=== PATIENT | female | born 1975 | race African-American/Black ===

== ENCOUNTER 2017-04-01 20:09 | Emergency (ER) | payer OTHER ==
--- NOTE | 2017-04-01 22:30 | DIAGNOSTIC IMAGING REPORT ---
PROCEDURE: US COMPLETE PELVIC W/TRANSVAG INDICATION: PAIN TECHNIQUE: Transabdominal and endovaginal moore scale and color Doppler sonographic images of the female pelvis were obtained. COMPARISON: CT abdomen/pelvis 03/30/2015. FINDINGS: TRANSABDOMINAL SCANS: Normal kidneys. TRANSVAGINAL SCANS: Retroverted uterus measures 6.4 x 6.4 x 5 cm. Endometrium measures 1.3 cm. Left ovary measures 5.8 x 3.4 x 3.7 cm with a 3.1 cm cyst with internal echoes and additional 1.3 cm simple cyst. There is vascular flow to the right ovary. Right ovary is surgically absent. No adnexal mass or free fluid the cul-de-sac. IMPRESSION: 1. 3.1 cm left ovarian hemorrhagic cyst and additional 1.3 cm simple cyst 2. Right oophorectomy 3. Retroverted uterus
--- NOTE | 2017-04-01 22:36 | ED CLINICAL REPORT ---
Clinical Report - Physicians/Mid Levels [facility] [address] [place] [address] 04/01/2017 20:12 Patient: VERA EMMANUEL Time Seen: 20:16 Apr 01 2017. Arrived- By private vehicle. Historian- patient and significant other. HISTORY OF PRESENT ILLNESS Chief Complaint: PELVIC PAIN. This started just prior to arrival and still present. No irregular periods. (PT Undergoing Pelvic Pain and Has Been Having Urgency Frequency and an Associated Left Ovarian Cyst over the Last 4 Weeks. Patient Initially Started with Cystitis, Was Placed on Bactrim around 03 March, in 5 Days Later Was Switched Due To Her Reaction, to Cipro, and Was Placed on Cipro for about 14-16 Days, Patient Completed the Cipro, and Was Seen in the Emergency Room, She Was Continuing to Have Left Side Pain, Radiating to Her Flank, and Was Found to have two Large Ovarian Cyst. Previously Patient with Right Ovarian Excision Surgery (oophrectomy) Due To Large Cyst at the Age of 15 or 16.). REVIEW OF SYSTEMS No vomiting, diarrhea, cough or enlarged lymph nodes. All systems otherwise negative, except as recorded above. PAST HISTORY Problems: Scabies. Diverticulitis. Sprain. Lifestyle / Substance Problems. UTI - Urinary Tract Infection. Pelvic Inflammatory Disease. LNMP - Last Normal Menstrual Period. Surgeries: No history of hysterectomy. Additional Surgeries: Appendectomy. Cholecystectomy. Laparoscopy. Oophorectomy. Tonsillectomy. Medications: Diclofenac Oral (Capsule 35 mg) 1 capsule, tid. Robaxin Oral 500 mg, as needed. Allergies: Codeine. SOCIAL HISTORY Current every day light tobacco smoker. History of drug use: marijuana. Not an IV drug user. No alcohol use. ADDITIONAL NOTES The nursing notes have been reviewed. PHYSICAL EXAM Vital Signs: 04/01/2017 20:21 BP: 115/74. HR: 98. RR: 16. O2 saturation: 97%. Temp: 98.4 F. Pain level now: 9/10. Appearance: No acute distress. Appears to be in pain. Patient in moderate distress. ENT: Pharynx normal. No hearing deficit. Neck: Neck supple. CVS: Heart sounds normal. Respiratory: No respiratory distress. Breath sounds normal. Abdomen: No mass. Back: Normal external inspection. No CVA tenderness. : Speculum and bimanual exam performed. Speculum exam normal. No vaginal discharge or bleeding. Cervical os closed. No tissue present. No cervicitis. No herpes-like lesions. Moderate left adnexal tenderness. Uterus not enlarged. No adnexal tenderness. No pelvic mass. Skin: Skin warm. Normal skin color. Neuro: Mood/affect normal. LABS, X-RAYS, AND EKG Pelvic Sonogram: IMPRESSION: 1. 3.1 cm left ovarian hemorrhagic cyst and additional 1.3 cm simple cyst 2. Right oophorectomy 3. Retroverted uterus Electronically Final signed by:Frantz Soriano MD 04/01/2017 10:29:58 PM. Laboratory Tests: UA-Culture if indicated: (LUCILLE: 04/01/2017 20:40) ( [facility] 04/01/2017 21:06) Final results Test Result Flag Units (Reference) URINE COLOR ORANGE URINE APPEARANCE CLEAR URINE GLUCOSE NEGATIVE (NEGATIVE) URINE BILIRUBIN NEGATIVE (NEGATIVE) URINE KETONE NEGATIVE (NEGATIVE) URINE SPECIFIC GRAVITY 1.025 (1.010-1.030) URINE PH 5.5 (5.0-8.0) URINE PROTEIN NEGATIVE (NEGATIVE) URINE UROBILINOGEN 1.0 EU/dL (0.2-1.0) URINE NITRITE POSITIVE (NEGATIVE) URINE BLOOD NEGATIVE (NEGATIVE) URINE LEUK ESTERASE NEGATIVE (NEGATIVE) URINE RBC NONE SEEN rbc/hpf (0-1) URINE WBC 0-1 wbc/hpf (0-1) URINE EPITHELIAL CELLS 1-3 EPI/hpf (0-5) URINE BACTERIA TRACE (<1+) (NONE SEEN) URINE COMMENT CULTURE INDICATED URINE CULTURES ARE SET-UP BASED ON THE FOLLOWING CRITERIA:POSITIVE NITRITEPOSITIVE LEUKOCYTE ESTERASEGREATER THAN 10 WHITE BLOOD CELLSMODERATE (2+) OR GREATER BACTERIA Urine: (LUCILLE: 04/01/2017 20:40) ( [facility] 04/01/2017 21:01) Final results Test Result Flag Units (Reference) URINE NEGATIVE CBC w Diff: (LUCILLE: 04/01/2017 20:40) ( [facility] 04/01/2017 21:02) Final results Test Result Flag Units (Reference) WHITE BLOOD COUNT 10.3 K/uL (4.5-11.5) RED BLOOD COUNT 3.86 L M/uL (4.00-5.20) HEMOGLOBIN 12.1 gm/dL (12.0-16.0) HEMATOCRIT 36.0 % (36.0-46.0) MEAN CELL VOLUME 94 fL (80-100) MEAN CORPUSCULAR HGB 31 pg (26-34) MEAN CORPUSCULAR HGB CONC 34 g/dL (31-37) RED CELL DISTRIBUTION WIDTH 14.1 % (11.6-14.8) PLATELET COUNT 247 K/uL (150-400) NEUTROPHIL % 59.7 % (50-75) LYMPH % 26.4 % (25-40) MONO % 8.8 % (3-14) EOSINOPHIL % 4.2 H % (0-4) BASOPHIL % 0.9 % (0-2) CMP: (LUCILLE: 04/01/2017 20:40) ( MsgRcvd 04/01/2017 21:17) Final results Test Result Flag Units (Reference) GLUCOSE 104 mg/dL (70-110) BUN 15 mg/dL (7-18) CREATININE 0.9 mg/dL (0.6-1.3) Estimated GFR >60 mL/min Estimated GFR- >60 mL/min Note: Persistent reduction over 3 months in eGFR<60 mL/min/1.73 m2 defines CKD. Patients with eGFR values>=60 mL/min/1.73 m2 may also have CKD if evidence ofpersistent proteinuria. Additional information may be foundat www.[email or web address].org. SODIUM 141 mmol/L (136-145) POTASSIUM 3.8 mmol/L (3.5-5.1) CHLORIDE 105 mmol/L (98-107) CARBON DIOXIDE 25 mmol/L (21-32) CALCIUM 8.4 L mg/dL (8.5-10.1) TOTAL PROTEIN 6.5 g/dL (6.4-8.2) ALBUMIN 3.5 g/dL (3.3-5.0) BILIRUBIN, TOTAL 0.2 mg/dL (0.0-1.0) ALKALINE PHOSPHATASE 135 H U/L (46-116) AST (SGOT) 65 H U/L (15-37) ALT (SGPT) 132 H U/L (12-78) Wet Prep: (LUCILLE: 04/01/2017 21:05) ( MsgRcvd 04/01/2017 21:21) Final results SPECIMEN DESCRIPTION: 1 Test Result Flag Units (Reference) WET MOUNT CLUE CELLS:: NONE EPITHELIAL CELLS: FEW -- SOURCE?: CERVIX WHITE BLOOD CELLS: FEW TRICHOMONAS:: NONE -- YEAST:: NONE . PROGRESS AND PROCEDURES Course of Care: Patient with a hemorrhagic and a simple cyst in the left ovary, with good flow. No signs of infectious process. Patient has an appointment with MOTHER TESTER on the , however is afraid she is unable to tolerate pain for such time frame. Will rx for narcotics. Urged pt to f/u with ob perhaps earlier appointment with another clinic is advisable. She has f/u with DR. Castorena . 04/01/2017 22:58 BP: 101/59. HR: 80. RR: 20. O2 saturation: 93%. Temp: 98.2 F. Pain level now: 9/10. Patient is stable. Physical exam findings are unchanged. Symptoms better. Patient/family counseled. Disposition: Discharged. Condition: good. CLINICAL IMPRESSION Multiple left ovarian cysts. INSTRUCTIONS Do not work for two weeks. (ALKALINE PHOSPHATASE 135 H U/L (46-116) AST (SGOT) 65 H U/L (15-37) ALT (SGPT) 132 H U/L (12-78) [facility]: [phone]). Warnings: SEDATIVE MEDICATION: You were given sedative medication during your visit. Do not drive or operate dangerous machinery. Prescription Medications: Oxycodone 5 mg tablets: take 1 orally every 6 hours as needed for pain. Dispense thirty (30). No refill. (Electronically signed by Estrella Terry P.A.-C 04/02/2017 13:26)
--- NOTE | 2017-04-01 22:36 | ED NURSING NOTES ---
Clinical Report - Nurses [facility] [address] [place] [address] 04/01/2017 20:12 Patient: VERA EMMANUEL TRIAGE Triage time 20:20 Apr 01 2017. Acuity: LEVEL 3. Chief Complaint: ABDOMINAL PAIN. Alert. ERIKA COMA SCORE: Erika Coma Scale: 15- eyes open spontaneously (4); best verbal response- oriented x 4 (5); best motor response- obeys commands (6). --20:40 Tommy Harding R.N. 20:21 04/01/17. BP: 115/74. HR: 98. RR: 16. O2 saturation: 97% on room air. Temp: 98.4 F (oral). Pain level now: 06/08. --20:40 Tommy Harding R.N. Weight: 69.8 kg stated. Height/Length: 63 inches Per Patient. BMI: 27.3. --20:28 Tommy Harding R.N. Medications Robaxin Oral 500 mg x 2 , at bedtime as needed. --20:27 Tommy Harding R.N. Diclofenac Oral (Capsule 35 mg) 1 capsule, tid. --20:27 Tommy Harding R.N. Hydrocodone-Acetaminophen Oral 10 mg, every 3-4 hours as needed. --20:31 Tommy Harding R.N. Pyridium Oral 100 mg, 3x a day. --20:31 Tommy Harding R.N. Phenergan (Promethazine) Oral 25 mg, 3x a day. --20:33 Tommy Harding R.N. The following entry was struck and corrected by Tommy Harding R.N., 20:32 (04/01/17) Reason for correction - other(correction). <<STRICKEN ENTRY-- Robaxin Oral 500 mg, as needed. --20:27 Tommy Hrading R.N. --END STRIKE>>. Allergies Codeine. Definite Moderate (Itchiness) --20:27 Tommy Harding R.N. The following entry was struck and corrected by Tommy Harding R.N., 20:33 (04/01/17) Reason for correction - other(correction). <<STRICKEN ENTRY-- Codeine. --20:27 Tommy Harding R.N. --END STRIKE>>. History Arrived by private vehicle. Historian: patient. Accompanied by friend. Primary physician (Marcela, Internal Med). ( Abdominal Pain according to pt's hx, related to ovarian cyst(s). Pain started about one month ago with a UTI.). Onset. (about 1 month ago). She has had nausea and abdominal pain. Last oral intake by patient was (about 2 hours ago). Treatment [employer]IFIC[employer] CANDY MAKER: (Just finished a course of Cipro). PAST MEDICAL HX: Immunizations: up-to-date. Last normal menstrual period was 4 weeks ago. Denies current . SOCIAL HX: Light tobacco smoker (cigarette)- less than 1/2 a pack per day. History of drug use: marijuana. No alcohol use. No recent travel. No infectious disease exposure. ABUSE ASSESSMENT: No report of abuse. FALL RISK ASSESSMENT: Fall risk assessment completed. No fall risk identified. NUTRITIONAL RISK ASSESSMENT: The nutritional risk assessment revealed no deficiencies. FUNCTIONAL ASSESSMENT: Functional assessment: no impairments noted. LEARNING NEEDS ASSESSMENT: The learning needs assessment revealed no barriers. SKIN INTEGRITY ASSESSMENT: Skin integrity risk assessment completed. No skin integrity risk identified. --20:40 Tommy Harding R.N. PROBLEMS: Scabies. Diverticulitis. Sprain. Lifestyle / Substance Problems. UTI - Urinary Tract Infection. Pelvic Inflammatory Disease. LNMP - Last Normal Menstrual Period. --20:23 Tommy Harding R.N. Herpetic Gingivostomatitis [RuleOut]. Impetigo [RuleOut]. --20:23 Tommy Harding R.N. ADDITIONAL SURGERIES: Appendectomy. Cholecystectomy. Laparoscopy. Oophorectomy. Tonsillectomy. --20:23 Tommy Harding R.N. Interventions ID and allergy band on patient. To treatment room. --20:40 Tommy Harding R.N. PHYSICAL ASSESSMENT To room via wheelchair. GENERAL / NEURO / PSYCH: Alert. Oriented X 4. Appears in pain. HEENT: Mucous membranes are pink. RESPIRATORY: Respirations not labored. CVS: Cardiac rhythm: (RRR). GI / : Abdominal tenderness in the left upper quadrant and right lower quadrant. SKIN: Skin is warm and dry. --20:39 Tommy Harding R.N. NURSING PROGRESS NOTES Patient gowned. Reassurance given to the patient. Patient identifiers checked. Call light placed in reach. Side rails up x 1. Bed placed in lowest position. Brakes of bed on. Patient ready for evaluation- chart flagged and ED physician notified. --20:39 Tommy Harding R.N. 20:39 04/01/2017 Site #1 started via IV in the left antecubital space with an 20g angiocath, with aseptic technique and good blood return; one attempt. Blood drawn: rainbow set. Labeled in the presence of the patient and sent to the lab. Saline lock flushed with saline. --20:49 Tommy Harding R.N. 20:53 04/01/2017 Started bag #1 1000 mL IV Fluids IV NS (Saline); at 1000 mL/hr via site #1 via IV pump. Allergies verified and confirmed 5 rights. IV patency established. IV site checked: no pain, redness, or swelling. IV flushed thoroughly pre- and post-medication administration. --20:58 Sanjuanita Aleman R.N. 20:53 04/01/2017 Dilaudid (HYDROmorphone HCl PF) IVP 1 mg given. via site #1. Allergies verified, confirmed 5 rights and sedative warning given to the patient. IV patency established. IV site checked: no pain, redness, or swelling. IV flushed thoroughly pre- and post-medication administration. IVP given by RN. --20:58 Sanjuanita Aleman R.N. 21:11 04/01/2017 Dilaudid (HYDROmorphone HCl PF) IVP 1 mg given over 1 minute(s) via site #1. Allergies verified, confirmed 5 rights and sedative warning given to the patient and patient's family. IV patency established. IV site checked: no pain, redness, or swelling. IV flushed thoroughly pre- and post-medication administration. IVP given by RN. --21:21 Zainab Escamilla R.N. 15. PELVIC EXAM: Pelvic exam performed by PA. Assisted by one nurse. Preparation: pelvic tray; patient placed in lithotomy position. Procedure: speculum exam. Specimens collected and sent to lab: GC, chlamydia and wet prep. Status post-procedure: she was stable. Total time of assist / procedure: 15 minutes. --21:21 Zainab Escamilla R.N. 21:22 04/01/17. HR: 95. RR: 18. O2 saturation: 99% on room air. --21:23 Zainab Escamilla R.N. 21:48 04/01/2017 Dilaudid IVP Response: pain is improving. Symptoms have improved the patient feels better. --21:48 Zainab Escamilla R.N. Theatrical Rigger provided for the general exam by the physician (US, pelvis). --22:09 Zainab Escamilla R.N. 22:19 04/01/2017 Dilaudid (HYDROmorphone HCl PF) IVP 1 mg given over 1 minute(s) via site #1. IV patency established. IV site checked: no pain, redness, or swelling. IV flushed thoroughly pre- and post-medication administration. --22:19 Zainab Escamilla R.N. 22:21 04/01/2017 IV Fluids IV NS Discontinued: bag #1 infused. Total amount infused: 1000 mL. IV patency established. IV site checked: no pain, redness, or swelling. IV flushed thoroughly. --22:21 Zainab Escamilla R.N. 22:19 04/01/17. BP: 110/59. HR: 94. RR: 16. O2 saturation: 97% on room air. Pain level now: 06/08. --22:21 Zainab Escamilla R.N. 22:31 04/01/17. Care transferred and report given (ELIZABETH Sanders). --22:31 Zainab Escamilla R.N. DISPOSITION / DISCHARGE 23:00 04/01/2017 Site #1 removed upon discharge. Bandaid applied. --23:00 Alayna Choi R.N. 23:00 04/01/17. Condition at departure: unchanged. No learning barriers present. Discharge instructions provided and reviewed with the patient. Reviewed medication(s) side effects, precautions, dosing and course information. Prescription(s) given to the patient. Patient verbalized understanding. Written instructions provided in Croatian. The patient was discharged by the physician communications assistant. She was discharged home and accompanied by spouse. She left the Emergency Department ambulatory and via private vehicle. Spouse driving. --23:00 Alayna Choi R.N. 22:58 04/01/17. BP: 101/59 (regular adult cuff) taken on the left arm, while sitting. HR: 80. RR: 20. O2 saturation: 93% on room air. Temp: 98.2 F. Pain level now: 06/08. --23:00 Alayna Choi R.N. Work note given. --23:00 Alayna Choi R.N. Locked/Released at 04/02/2017 7:23 by Tommy Harding R.N.
--- NOTE | 2017-04-01 22:36 | ED CLINICAL REPORT ---
Clinical Report - Physicians/Mid Levels [facility] [address] [place] [address] 04/01/2017 20:12 Patient: VERA EMMANUEL Time Seen: 20:16 Apr 01 2017. Arrived- By private vehicle. Historian- patient and significant other. HISTORY OF PRESENT ILLNESS Chief Complaint: PELVIC PAIN. This started just prior to arrival and still present. No irregular periods. (PT Undergoing Pelvic Pain and Has Been Having Urgency Frequency and an Associated Left Ovarian Cyst over the Last 4 Weeks. Patient Initially Started with Cystitis, Was Placed on Bactrim around 03 March, in 5 Days Later Was Switched Due To Her Reaction, to Cipro, and Was Placed on Cipro for about 14-16 Days, Patient Completed the Cipro, and Was Seen in the Emergency Room, She Was Continuing to Have Left Side Pain, Radiating to Her Flank, and Was Found to have two Large Ovarian Cyst. Previously Patient with Right Ovarian Excision Surgery (oophrectomy) Due To Large Cyst at the Age of 15 or 16.). REVIEW OF SYSTEMS No vomiting, diarrhea, cough or enlarged lymph nodes. All systems otherwise negative, except as recorded above. PAST HISTORY Problems: Scabies. Diverticulitis. Sprain. Lifestyle / Substance Problems. UTI - Urinary Tract Infection. Pelvic Inflammatory Disease. LNMP - Last Normal Menstrual Period. Surgeries: No history of hysterectomy. Additional Surgeries: Appendectomy. Cholecystectomy. Laparoscopy. Oophorectomy. Tonsillectomy. Medications: Diclofenac Oral (Capsule 35 mg) 1 capsule, tid. Robaxin Oral 500 mg, as needed. Allergies: Codeine. SOCIAL HISTORY Current every day light tobacco smoker. History of drug use: marijuana. Not an IV drug user. No alcohol use. ADDITIONAL NOTES The nursing notes have been reviewed. PHYSICAL EXAM Vital Signs: 04/01/2017 20:21 BP: 115/74. HR: 98. RR: 16. O2 saturation: 97%. Temp: 98.4 F. Pain level now: 9/10. Appearance: No acute distress. Appears to be in pain. Patient in moderate distress. ENT: Pharynx normal. No hearing deficit. Neck: Neck supple. CVS: Heart sounds normal. Respiratory: No respiratory distress. Breath sounds normal. Abdomen: No mass. Back: Normal external inspection. No CVA tenderness. : Speculum and bimanual exam performed. Speculum exam normal. No vaginal discharge or bleeding. Cervical os closed. No tissue present. No cervicitis. No herpes-like lesions. Moderate left adnexal tenderness. Uterus not enlarged. No adnexal tenderness. No pelvic mass. Skin: Skin warm. Normal skin color. Neuro: Mood/affect normal. LABS, X-RAYS, AND EKG Pelvic Sonogram: IMPRESSION: 1. 3.1 cm left ovarian hemorrhagic cyst and additional 1.3 cm simple cyst 2. Right oophorectomy 3. Retroverted uterus Electronically Final signed by:Frantz Soriano MD 04/01/2017 10:29:58 PM. Laboratory Tests: UA-Culture if indicated: (LUCILLE: 04/01/2017 20:40) ( [facility] 04/01/2017 21:06) Final results Test Result Flag Units (Reference) URINE COLOR ORANGE URINE APPEARANCE CLEAR URINE GLUCOSE NEGATIVE (NEGATIVE) URINE BILIRUBIN NEGATIVE (NEGATIVE) URINE KETONE NEGATIVE (NEGATIVE) URINE SPECIFIC GRAVITY 1.025 (1.010-1.030) URINE PH 5.5 (5.0-8.0) URINE PROTEIN NEGATIVE (NEGATIVE) URINE UROBILINOGEN 1.0 EU/dL (0.2-1.0) URINE NITRITE POSITIVE (NEGATIVE) URINE BLOOD NEGATIVE (NEGATIVE) URINE LEUK ESTERASE NEGATIVE (NEGATIVE) URINE RBC NONE SEEN rbc/hpf (0-1) URINE WBC 0-1 wbc/hpf (0-1) URINE EPITHELIAL CELLS 1-3 EPI/hpf (0-5) URINE BACTERIA TRACE (<1+) (NONE SEEN) URINE COMMENT CULTURE INDICATED URINE CULTURES ARE SET-UP BASED ON THE FOLLOWING CRITERIA:POSITIVE NITRITEPOSITIVE LEUKOCYTE ESTERASEGREATER THAN 10 WHITE BLOOD CELLSMODERATE (2+) OR GREATER BACTERIA Urine: (LUCILLE: 04/01/2017 20:40) ( [facility] [place] 04/01/2017 21:01) Final results Test Result Flag Units (Reference) URINE NEGATIVE CBC w Diff: (LUCILLE: 04/01/2017 20:40) ( [facility] [place] 04/01/2017 21:02) Final results Test Result Flag Units (Reference) WHITE BLOOD COUNT 10.3 K/uL (4.5-11.5) RED BLOOD COUNT 3.86 L M/uL (4.00-5.20) HEMOGLOBIN 12.1 gm/dL (12.0-16.0) HEMATOCRIT 36.0 % (36.0-46.0) MEAN CELL VOLUME 94 fL (80-100) MEAN CORPUSCULAR HGB 31 pg (26-34) MEAN CORPUSCULAR HGB CONC 34 g/dL (31-37) RED CELL DISTRIBUTION WIDTH 14.1 % (11.6-14.8) PLATELET COUNT 247 K/uL (150-400) NEUTROPHIL % 59.7 % (50-75) LYMPH % 26.4 % (25-40) MONO % 8.8 % (3-14) EOSINOPHIL % 4.2 H % (0-4) BASOPHIL % 0.9 % (0-2) CMP: (LUCILLE: 04/01/2017 20:40) ( MsgRcvd 04/01/2017 21:17) Final results Test Result Flag Units (Reference) GLUCOSE 104 mg/dL (70-110) BUN 15 mg/dL (7-18) CREATININE 0.9 mg/dL (0.6-1.3) Estimated GFR >60 mL/min Estimated GFR- >60 mL/min Note: Persistent reduction over 3 months in eGFR<60 mL/min/1.73 m2 defines CKD. Patients with eGFR values>=60 mL/min/1.73 m2 may also have CKD if evidence ofpersistent proteinuria. Additional information may be foundat www.kidney.org. SODIUM 141 mmol/L (136-145) POTASSIUM 3.8 mmol/L (3.5-5.1) CHLORIDE 105 mmol/L (98-107) CARBON DIOXIDE 25 mmol/L (21-32) CALCIUM 8.4 L mg/dL (8.5-10.1) TOTAL PROTEIN 6.5 g/dL (6.4-8.2) ALBUMIN 3.5 g/dL (3.3-5.0) BILIRUBIN, TOTAL 0.2 mg/dL (0.0-1.0) ALKALINE PHOSPHATASE 135 H U/L (46-116) AST (SGOT) 65 H U/L (15-37) ALT (SGPT) 132 H U/L (12-78) Wet Prep: (LUCILLE: 04/01/2017 21:05) ( MsgRcvd 04/01/2017 21:21) Final results SPECIMEN DESCRIPTION: 1 Test Result Flag Units (Reference) WET MOUNT CLUE CELLS:: NONE EPITHELIAL CELLS: FEW -- SOURCE?: CERVIX WHITE BLOOD CELLS: FEW TRICHOMONAS:: NONE -- YEAST:: NONE . PROGRESS AND PROCEDURES Course of Care: Patient with a hemorrhagic and a simple cyst in the left ovary, with good flow. No signs of infectious process. Patient has an appointment with NURSERY WORKER on the , however is afraid she is unable to tolerate pain for such time frame. Will rx for narcotics. Urged pt to f/u with ob perhaps earlier appointment with another clinic is advisable. She has f/u with DR. Castorena . 04/01/2017 22:58 BP: 101/59. HR: 80. RR: 20. O2 saturation: 93%. Temp: 98.2 F. Pain level now: 9/10. Patient is stable. Physical exam findings are unchanged. Symptoms better. Patient/family counseled. Disposition: Discharged. Condition: good. CLINICAL IMPRESSION Multiple left ovarian cysts. INSTRUCTIONS Do not work for two weeks. (ALKALINE PHOSPHATASE 135 H U/L (46-116) AST (SGOT) 65 H U/L (15-37) ALT (SGPT) 132 H U/L (12-78) [facility]: [phone]). Warnings: SEDATIVE MEDICATION: You were given sedative medication during your visit. Do not drive or operate dangerous machinery. Prescription Medications: Oxycodone 5 mg tablets: take 1 orally every 6 hours as needed for pain. Dispense thirty (30). No refill. (Electronically signed by Estrella Terry P.A.-C 04/02/2017 13:26)
--- NOTE | 2017-04-01 22:36 | ED ORDER SUMMARY ---
..... Patient: VERA EMMANUEL OrderSheet [facility] VisitID: [id number] [place] [address] 41y, F Registration Date/Time: 04/01/2017 ORDER SHEET Weight: 69.8 kg (stated) Allergies: Codeine, GENERAL ORDERS: US Pelvic Complete w Transvag Urgent (20:24 04/01/2017 EKoroleva P.A.-C) (Ack 20:28 RKaruga) (22:19 SRoberts R.N.) CBC w Diff Urgent (20:04/01/2017 EKoroleva P.A.-C) (Ack 20:28 RKaruga) (20:48 JRomanelli R.N.) CMP Urgent (20:04/01/2017 EKoroleva P.A.-C) (Ack 20:28 RKaruga) (20:48 JRomanelli R.N.) Urine Urgent (20:04/01/2017 EKoroleva P.A.-C) (Ack 20:28 RKaruga) (20:48 JRomanelli R.N.) UA-Culture if indicated Urgent (20:25 04/01/2017 EKoroleva P.A.-C) (Ack 20:28 RKaruga) (20:48 JRomanelli R.N.) Wet Prep (Cervix) (1) Urgent (20:28 04/01/2017 EKoroleva P.A.-C) (Ack 20:33 RKaruga) (21:21 SRoberts R.N.) Pelvic Exam Setup (20:29 04/01/2017 EKoroleva P.A.-C) (Ack 20:33 RKaruga) (21:21 SRoberts R.N.) MEDICATION ORDERS: IV FLUIDS: IV NS : initial bolus 1000 mL (1000 mL/hr), then 1000 mL/hr for X1 (NOW); Nii (20:24 04/01/2017 EKoroleva P.A.-C) (Ack 20:46 KPage-Kuchan R.N.) (20:58 KPage-Kuchan R.N.) Dilaudid IV 1 mg (HIGH ALERT MEDICATION, NOW) (20:24 04/01/2017 EKoroleva P.A.-C) (Ack 20:46 KPanila-Carlos R.N.) (20:58 KPanila-Eden R.N.) Dilaudid IV 1 mg (HIGH ALERT MEDICATION, NOW) (21:07 04/01/2017 EKoroleva P.A.-C) (Ack 21:19 KPanila-Carols R.N.) (21:21 SRoberts R.N.) Dilaudid IV 1 mg (HIGH ALERT MEDICATION, NOW) (22:12 04/01/2017 EKoroleva P.A.-C) (22:19 SRoberts R.N.) ORDER SHEET NOTES: [Electronically signed by Tommy Harding R.N. (07:23 04/02/2017)] [Electronically signed by Estrella Terry-C (13:26 04/02/2017)] [Electronically locked/signed by Tommy Harding R.N. (07:23 04/02/2017)]
--- NOTE | 2017-04-01 22:36 | ED ORDER SUMMARY ---
..... Patient: VERA EMMANUEL OrderSheet [facility] VisitID: [id number] [place] [address] 41y, F Registration Date/Time: 04/01/2017 ORDER SHEET Weight: 69.8 kg (stated) Allergies: Codeine, GENERAL ORDERS: US Pelvic Complete w Transvag Urgent (20:24 04/01/2017 EKoroleva P.A.-C) (Ack 20:28 RKaruga) (22:19 SRoberts R.N.) CBC w Diff Urgent (20:04/01/2017 EKoroleva P.A.-C) (Ack 20:28 RKaruga) (20:48 JRomanelli R.N.) CMP Urgent (20:04/01/2017 EKoroleva P.A.-C) (Ack 20:28 RKaruga) (20:48 JRomanelli R.N.) Urine Urgent (20:04/01/2017 EKoroleva P.A.-C) (Ack 20:28 RKaruga) (20:48 JRomanelli R.N.) UA-Culture if indicated Urgent (20:25 04/01/2017 EKoroleva P.A.-C) (Ack 20:28 RKaruga) (20:48 JRomanelli R.N.) Wet Prep (Cervix) (1) Urgent (20:28 04/01/2017 EKoroleva P.A.-C) (Ack 20:33 RKaruga) (21:21 SRoberts R.N.) Pelvic Exam Setup (20:29 04/01/2017 EKoroleva P.A.-C) (Ack 20:33 RKaruga) (21:21 SRoberts R.N.) MEDICATION ORDERS: IV FLUIDS: IV NS : initial bolus 1000 mL (1000 mL/hr), then 1000 mL/hr for X1 (NOW); Nii (20:24 04/01/2017 EKoroleva P.A.-C) (Ack 20:46 KPage-Kuchan R.N.) (20:58 KPage-Kuchan R.N.) Dilaudid IV 1 mg (HIGH ALERT MEDICATION, NOW) (20:24 04/01/2017 EKoroleva P.A.-C) (Ack 20:46 KPanila-Carlos R.N.) (20:58 KPanila-Eden R.N.) Dilaudid IV 1 mg (HIGH ALERT MEDICATION, NOW) (21:07 04/01/2017 EKoroleva P.A.-C) (Ack 21:19 KPanila-Carlos R.N.) (21:21 SRoberts R.N.) Dilaudid IV 1 mg (HIGH ALERT MEDICATION, NOW) (22:12 04/01/2017 EKoroleva P.A.-C) (22:19 SRoberts R.N.) ORDER SHEET NOTES: [Electronically signed by Tommy Harding R.N. (07:23 04/02/2017)] [Electronically signed by Estrella Terry-C (13:26 04/02/2017)] [Electronically locked/signed by Tommy Harding R.N. (07:23 04/02/2017)]
--- NOTE | 2017-04-02 13:26 | ED DISCHARGE INSTRUCTIONS ---
Patient: VERA EMMANUEL General Instructions [facility] VisitID: [id number] [place] [address] 41y, F Registration Date/Time: 04/01/2017 Multiple left ovarian cysts. INSTRUCTIONS Do not work for two weeks. (ALKALINE PHOSPHATASE 135 H U/L (46-116) AST (SGOT) 65 H U/L (15-37) ALT (SGPT) 132 H U/L (12-78) [facility]: [phone]). Warnings: SEDATIVE MEDICATION: You were given sedative medication during your visit. Do not drive or operate dangerous machinery. Prescription Medications: Oxycodone 5 mg tablets: take 1 orally every 6 hours as needed for pain. Dispense thirty (30). No refill. ADDITIONAL INFORMATION Ovarian Cyst The ovary is a small organ located on each side of the uterus. During each menstrual cycle a tiny egg sac forms in the ovary. If the egg is released but does not occur, this sac usually dissolves. Sometimes, the sac may fill with fluid. It then enlarges into a painful cyst. Usually the cyst will rupture or shrink on its own. In either case, the pain gradually goes away over the next 1-3 days. If the cyst does not shrink or rupture, it may cause continued pain. Home Care: Rest in bed and avoid heavy exertion until you are feeling better. Heat to the lower abdomen usually helps (heating pad or hot packs -- a small towel soaked in hot water). You may use acetaminophen (Tylenol) or ibuprofen (Motrin, Advil) to control pain, unless another pain medicine was prescribed. [NOTE: If you have chronic liver or kidney disease or ever had a stomach ulcer or GI bleeding, talk with your doctor before using these medicines.] Follow Up: See your doctor within the next 2-3 days if your pain doesnt improve. Otherwise, follow up with your doctor after your next period or as directed by our staff. Get Prompt Medical Attention if any of the following occur: Pain worsens or fails to respond to the above measures Fever of 100.4F (38C) or higher, or as directed by your healthcare provider Heavy vaginal bleeding (soaking one pad an hour for three hours) You feel weak or dizzy Fainting Passage of a pink or moore tissue with menstrual bleeding You have been given the following additional information: Ovarian Cyst Do not work for two weeks. (Electronically signed by Estrella Terry P.A.-C 04/02/2017 13:26)
--- NOTE | 2017-04-02 13:26 | ED MAR SUMMARY ---
..... Medication Administration Record [facility] [address] [place] [address] Patient: VERA EMMANUEL Visit ID: [id number] 41y, F Weight: 69.8 kg Height/Length: 63 in BMI: 27.3 ALLERGIES: Codeine Start 20:53 04/01/2017 Sanjuanita Aleman R.N., Stop 22:04/01/2017 Zainab Escamilla R.N. Medication Administered: IV NS (SALINE), Dose: IV Fluids, Rate: 1000 mL/hr, Dispensed: 1000 mL bag, Site: #1 left AC. Medication Ordered: IV NS : initial bolus 1000 mL (1000 mL/hr), then 1000 mL/hr for X1 (NOW); Nii. Given 20:53 04/01/2017 Sanjuanita Aleman R.N. Medication Administered: DILAUDID [IVP] (HYDROMORPHONE HCL PF), Dose: 1 mg IVP, Site: #1 left AC. Medication Ordered: Dilaudid IV 1 mg (HIGH ALERT MEDICATION, NOW). Given 21:11 04/01/2017 Zainab Escamilla R.N. Medication Administered: DILAUDID [IVP] (HYDROMORPHONE HCL PF), Dose: 1 mg IVP over 1 minute(s), Site: #1 left AC. Medication Ordered: Dilaudid IV 1 mg (HIGH ALERT MEDICATION, NOW). Given 22:04/01/2017 Zainab Escamilla R.N. Medication Administered: DILAUDID [IVP] (HYDROMORPHONE HCL PF), Dose: 1 mg IVP over 1 minute(s), Site: #1 left AC. Medication Ordered: Dilaudid IV 1 mg (HIGH ALERT MEDICATION, NOW).
--- NOTE | 2017-04-02 13:26 | ED MAR SUMMARY ---
..... Medication Administration Record [facility] [address] [place] [address] Patient: VERA EMMANUEL Visit ID: [id number] 41y, F Weight: 69.8 kg Height/Length: 63 in BMI: 27.3 ALLERGIES: Codeine Start 20:53 04/01/2017 Sanjuanita Aleman R.N., Stop 22:04/01/2017 Zainab Escamilla R.N. Medication Administered: IV NS (SALINE), Dose: IV Fluids, Rate: 1000 mL/hr, Dispensed: 1000 mL bag, Site: #1 left AC. Medication Ordered: IV NS : initial bolus 1000 mL (1000 mL/hr), then 1000 mL/hr for X1 (NOW); Nii. Given 20:53 04/01/2017 Sanjuanita Aleman R.N. Medication Administered: DILAUDID [IVP] (HYDROMORPHONE HCL PF), Dose: 1 mg IVP, Site: #1 left AC. Medication Ordered: Dilaudid IV 1 mg (HIGH ALERT MEDICATION, NOW). Given 21:11 04/01/2017 Zainab Escamilla R.N. Medication Administered: DILAUDID [IVP] (HYDROMORPHONE HCL PF), Dose: 1 mg IVP over 1 minute(s), Site: #1 left AC. Medication Ordered: Dilaudid IV 1 mg (HIGH ALERT MEDICATION, NOW). Given 22:04/01/2017 Zainab Escamilla R.N. Medication Administered: DILAUDID [IVP] (HYDROMORPHONE HCL PF), Dose: 1 mg IVP over 1 minute(s), Site: #1 left AC. Medication Ordered: Dilaudid IV 1 mg (HIGH ALERT MEDICATION, NOW).
--- NOTE | 2017-04-02 13:26 | ED DISCHARGE INSTRUCTIONS ---
Patient: VERA EMMANUEL General Instructions [facility] VisitID: [id number] [place] [address] 41y, F Registration Date/Time: 04/01/2017 Multiple left ovarian cysts. INSTRUCTIONS Do not work for two weeks. (ALKALINE PHOSPHATASE 135 H U/L (46-116) AST (SGOT) 65 H U/L (15-37) ALT (SGPT) 132 H U/L (12-78) [facility]: [phone]). Warnings: SEDATIVE MEDICATION: You were given sedative medication during your visit. Do not drive or operate dangerous machinery. Prescription Medications: Oxycodone 5 mg tablets: take 1 orally every 6 hours as needed for pain. Dispense thirty (30). No refill. ADDITIONAL INFORMATION Ovarian Cyst The ovary is a small organ located on each side of the uterus. During each menstrual cycle a tiny egg sac forms in the ovary. If the egg is released but does not occur, this sac usually dissolves. Sometimes, the sac may fill with fluid. It then enlarges into a painful cyst. Usually the cyst will rupture or shrink on its own. In either case, the pain gradually goes away over the next 1-3 days. If the cyst does not shrink or rupture, it may cause continued pain. Home Care: Rest in bed and avoid heavy exertion until you are feeling better. Heat to the lower abdomen usually helps (heating pad or hot packs -- a small towel soaked in hot water). You may use acetaminophen (Tylenol) or ibuprofen (Motrin, Advil) to control pain, unless another pain medicine was prescribed. [NOTE: If you have chronic liver or kidney disease or ever had a stomach ulcer or GI bleeding, talk with your doctor before using these medicines.] Follow Up: See your doctor within the next 2-3 days if your pain doesnt improve. Otherwise, follow up with your doctor after your next period or as directed by our staff. Get Prompt Medical Attention if any of the following occur: Pain worsens or fails to respond to the above measures Fever of 100.4F (38C) or higher, or as directed by your healthcare provider Heavy vaginal bleeding (soaking one pad an hour for three hours) You feel weak or dizzy Fainting Passage of a pink or moore tissue with menstrual bleeding You have been given the following additional information: Ovarian Cyst Do not work for two weeks. (Electronically signed by Estrella Terry P.A.-C 04/02/2017 13:26)
--- NOTE | 2017-04-02 13:27 | ED MED RECONCILIATION SUMMARY ---
Patient: VERA EMMANUEL Medication Reconciliation Report [facility] VisitID: [id number] [address] [place] [address] 41y, F Registration Date/Time: 04/01/2017 Weight: 69.8 kg Height/Length: 63 in. BMI: 27.3 ALLERGIES: Codeine The patient's Home Medications are listed below: THE FOLLOWING MEDICATIONS NEED TO BE RECONCILED: Diclofenac Oral (35 mg) 1 capsule, tid Hydrocodone-Acetaminophen Oral 10 mg, every 3-4 hours Phenergan (Promethazine) Oral 25 mg, 3x a day Pyridium Oral 100 mg, 3x a day Robaxin Oral 500 mg x 2 , at bedtime The source(s) of the original Home Medication information: Not obtained. The following Medications were given to the patient in the Emergency Department: IV NS IV Fluids bolus 0, then 1000 mL/hr, administered: 04/01/2017 8:53:00 PM Dilaudid [IVP] IVP 1 mg, administered: 04/01/2017 8:53:00 PM Dilaudid [IVP] IVP 1 mg, administered: 04/01/2017 9:11:00 PM Dilaudid [IVP] IVP 1 mg, administered: 04/01/2017 10:19:00 PM The following Medications were prescribed to the patient: Oxycodone 5 mg tablets: take 1 orally every 6 hours as needed for pain. Dispense thirty (30). No refill. -- Estrella Terry, PLluviaATinoC
--- NOTE | 2017-04-02 13:27 | ED MED RECONCILIATION SUMMARY ---
Patient: VERA EMMANUEL Medication Reconciliation Report [facility] VisitID: [id number] [address] [place] [address] 41y, F Registration Date/Time: 04/01/2017 Weight: 69.8 kg Height/Length: 63 in. BMI: 27.3 ALLERGIES: Codeine The patient's Home Medications are listed below: THE FOLLOWING MEDICATIONS NEED TO BE RECONCILED: Diclofenac Oral (35 mg) 1 capsule, tid Hydrocodone-Acetaminophen Oral 10 mg, every 3-4 hours Phenergan (Promethazine) Oral 25 mg, 3x a day Pyridium Oral 100 mg, 3x a day Robaxin Oral 500 mg x 2 , at bedtime The source(s) of the original Home Medication information: Not obtained. The following Medications were given to the patient in the Emergency Department: IV NS IV Fluids bolus 0, then 1000 mL/hr, administered: 04/01/2017 8:53:00 PM Dilaudid [IVP] IVP 1 mg, administered: 04/01/2017 8:53:00 PM Dilaudid [IVP] IVP 1 mg, administered: 04/01/2017 9:11:00 PM Dilaudid [IVP] IVP 1 mg, administered: 04/01/2017 10:19:00 PM The following Medications were prescribed to the patient: Oxycodone 5 mg tablets: take 1 orally every 6 hours as needed for pain. Dispense thirty (30). No refill. -- Estrella Terry, PLluviaATinoC
== END 2017-04-01 22:59 | disposition home or self-care (01) ==
LOC: ED SRH 20:09
DX: N83.292 Other ovarian cyst, left side (principal); Z90.721 Acquired absence of ovaries, unilateral; F12.10 Cannabis abuse, uncomplicated; F17.210 Nicotine dependence, cigarettes, uncomplicated; Z88.5 Allergy status to narcotic agent
CPT/HCPCS: 90004; 90100; 90195; 90469; 93070; 95059